=== PATIENT | female | born 2000 | race African-American/Black ===

== ENCOUNTER 2020-02-10 13:20 | Emergency (ER) | payer OTHER ==
[~2020-02-10] VITALS: Ht 167.6 cm; Wt 57.2 kg
[2020-02-10 13:21] VITALS: BP 136/77
[2020-02-10] MEDS ORDERED: ACETAMINOPHEN TAB 650MG DOSE (2X325MG) PO ONE (14:15)
== END 2020-02-10 15:18 | disposition left against medical advice (07) ==
LOC: M ED 13:20
DX: S09.90XA Unspecified injury of head, initial encounter (principal); Y04.8XXA Assault by other bodily force, initial encounter; Y07.01 Husband, perpetrator of maltreatment and neglect; Y92.018 Other place in single-family (private) house as the place of occurrence of the external cause; F17.210 Nicotine dependence, cigarettes, uncomplicated

== ENCOUNTER 2020-05-23 17:02 | Emergency (ER) | payer OTHER ==
[~2020-05-23] VITALS: Ht 167.6 cm; Wt 57.8 kg
[2020-05-23 17:02] VITALS: BP 103/59
[2020-05-23] MEDS ORDERED: IBUP-1022 PO (17:16)
[2020-05-23] MEDS ORDERED: CYCL-707 PO (17:37)
[2020-05-23] MEDS ORDERED: methylPREDNISolone 125MG 2ML VIAL IM ONE (17:45)
[2020-05-23] MEDS ORDERED: LIDOCAINE 5% (LIDODERM) PATCH TD ONE (17:45)
[2020-05-23] MEDS ORDERED: **NOTE PATIENT COMMENT** MISC XX SCH (21:00)
== END 2020-05-23 18:12 | disposition home or self-care (01) ==
LOC: M ED 17:02
DX: M54.5 Low back pain (principal); Y93.B3 Activity, free weights; Y92.9 Unspecified place or not applicable; Y99.9 Unspecified external cause status; F17.200 Nicotine dependence, unspecified, uncomplicated; Z79.899 Other long term (current) drug therapy
CPT/HCPCS: 96372; 99282; J2930

== ENCOUNTER 2022-01-06 21:55 | Inpatient (IN) | payer OTHER ==
[~2022-01-06] VITALS: Ht 170.2 cm; Wt 68.2 kg
[~2022-01-06 21:55] MED LIST: CYCL-707 PO; IBUP-1022 PO
[2022-01-06] MEDS ORDERED: OXYTOCIN INJ 10 UNITS/ML VIAL (J2590) IV PRN (22:20)
[2022-01-06] MEDS ORDERED: LACTATED RINGER'S 1000 ML IV STA (22:20)
[2022-01-06] MEDS ORDERED: LIDOCAINE 1% MDV 20ML VIAL INFIL PRN (22:20)
[2022-01-06] MEDS ORDERED: TRANEXAMIC ACID INJection 1,000 MG in NS 100 ML IV PRN (22:20)
[2022-01-06] MEDS ORDERED: LR 1,000 ML IV SCH (22:20)
[2022-01-06] MEDS ORDERED: METHYLERGONOVINE MALEATE 0.2 MG/ML VIAL (J2210) IM PRN (22:20)
[2022-01-06] MEDS ORDERED: OXYTOCIN DRIP 30 UNITS in IV 1 EA IV PRN ×6 (22:20)
[2022-01-06] MEDS ORDERED: OXYTOCIN INJ 10 UNITS/ML VIAL (J2590) IM PRN (22:20)
[2022-01-06] MEDS ORDERED: CARBOPROST TROMETHAMINE 250 MCG/ML AMP IM PRN (22:20)
[2022-01-06] MEDS ORDERED: PRENTAB9 PO (22:29)
[2022-01-06] MEDS ORDERED: HOME MED LIST COMPLETE! XX SCH (22:30)
[2022-01-06] MEDS ORDERED: FENTANYL 2MCG/ML ROPIVACAINE 0.2% IN 0.9% NACL 100ML IVBAG As Ordered ONE (22:41)
[2022-01-06 22:49] LABS: HEMATOCRIT 32.9 % (36.0-47.0); HEMOGLOBIN 11.3 g/dl (12.0-15.5); MEAN CORPUSCULAR HEMOGLOBIN 30.6 pg (27.0-33.0); MEAN CORPUSCULAR HGB CONC 34.3 g/dl (32.0-36.5); MEAN CORPUSCULAR VOLUME 89.2 fl (80.0-96.0); PLATELET COUNT, AUTOMATED 230 10^3/uL (150-450); RED BLOOD COUNT 3.69 10^6/uL (4.00-5.40); WHITE BLOOD COUNT 12.4 10^3/uL (4.0-10.0)
[2022-01-06] MEDS ORDERED: EPIDURAL/PCA KEYS XX PRN (22:55)
[2022-01-06] MEDS ORDERED: ePHEDrine SULFATE 25 MG/5 ML(5MG/ML) SYRINGE IVP PRN (22:55)
[2022-01-06] MEDS ORDERED: ONDANSETRON 4MG/2ML VIAL IV PRN (22:55)
[2022-01-06] MEDS ORDERED: NALOXONE INJ 0.4MG/1ML VIAL (J2310 PER 1MG) IV PRN (22:55)
[2022-01-06] MEDS ORDERED: diphenhydrAMINE 50MG/ML VIAL (J1200) IV PRN (22:55)
[2022-01-06] MEDS ORDERED: FENTANYL/ROPIVACAINE/NACL BAG 100 ML EPIDURAL SCH (22:55)
[2022-01-06] MEDS ORDERED: LR 500 ML IV PRN (22:55)
[2022-01-06 23:24] VITALS: BP 125/77
[2022-01-06 23:53] VITALS: BP 142/86
[2022-01-06 23:58] VITALS: BP 145/91
[2022-01-07] VITALS (21 sets, daily range): BP systolic 108–150; BP diastolic 57–87
[2022-01-07] MEDS ORDERED: ACETAMINOPHEN TAB 650MG DOSE (2X325MG) PO PRN (04:10)
[2022-01-07] MEDS ORDERED: METHYLERGONOVINE MALEATE 0.2 MG TAB PO PRN (04:10)
[2022-01-07] MEDS ORDERED: ONDANSETRON 4MG/2ML VIAL IV PRN (04:10)
[2022-01-07] MEDS ORDERED: IBUPROFEN 600MG TAB PO PRN (04:10)
[2022-01-07] MEDS ORDERED: LR 1,000 ML IV SCH (04:10)
[2022-01-07] MEDS ORDERED: ACETAMINOPHEN 500 MG TAB PO PRN (04:10)
[2022-01-07] MEDS ORDERED: IBUPROFEN 800 MG TAB PO PRN (04:10)
[2022-01-07] MEDS ORDERED: ANUSOL HC CREAM 30GM TOP PRN (04:10)
[2022-01-07] MEDS ORDERED: DIBUCAINE 1% OINTMENT 30GM TOP PRN (04:10)
[2022-01-07] MEDS ORDERED: RHOGAM 300 MCG (1500 IU) INJ (J2790) IM SCH (04:10)
[2022-01-07] MEDS ORDERED: OXYTOCIN DRIP 30 UNITS in IV 1 EA IV SCH (04:10)
[2022-01-07] MEDS: PRENATAL VITAMINS CHEWABLE TABLET PO SCH (09:13)
[2022-01-07] MEDS: DOCUSATE SODIUM 100MG CAPSULE PO SCH ×2 (09:13→21:44)
[2022-01-08 06:00] VITALS: BP 126/79
[2022-01-08] MEDS: DOCUSATE SODIUM 100MG CAPSULE PO SCH ×2 (08:16→20:27)
[2022-01-08] MEDS: PRENATAL VITAMINS CHEWABLE TABLET PO SCH (08:16)
[2022-01-08 18:09] VITALS: BP 134/74
[2022-01-09 06:11] VITALS: BP 126/83
[2022-01-09] MEDS ORDERED: IBUP-1022 PO (06:29)
[2022-01-09] MEDS ORDERED: COLA100C5 PO (06:29)
[2022-01-09] MEDS ORDERED: ACET1TAB55 PO (06:29)
[2022-01-09] MEDS: DOCUSATE SODIUM 100MG CAPSULE PO SCH (08:59)
[2022-01-09] MEDS: PRENATAL VITAMINS CHEWABLE TABLET PO SCH (08:59)
[2022-01-09] MEDS ORDERED: MEASLES,MUMPS,RUBELLA VACCINE INJ (MMR-II) (90707) SC ONE (09:00)
== END 2022-01-09 12:00 | disposition home or self-care (01) | DRG 807 ==
LOC: M LDO 21:55 → M LDI 22:09 → M OBS 01-07 06:15
PROVIDERS: ADMIT Obstetrics & Gynecology; ATTEND Obstetrics & Gynecology
PROC: 10E0XZZ Delivery of Products of Conception, External Approach (ICD-10-PCS; principal; 2022-01-07)
DX: O80 Encounter for full-term uncomplicated delivery (principal); Z37.0 Single live birth; Z3A.38 38 weeks gestation of pregnancy

== ENCOUNTER 2022-12-24 19:28 | Inpatient (IN) | payer OTHER ==
[~2022-12-24] VITALS: Ht 170.2 cm; Wt 74.0 kg
[~2022-12-24 19:28] MED LIST changes: +ACET1TAB55 PO; +COLA100C5 PO; +PRENTAB9 PO
[2022-12-24 19:32] VITALS: BP 125/81
[2022-12-24] MEDS ORDERED: OXYTOCIN 30UNITS IN 0.9% NaCl 500ML IV BAG As Ordered ONE (19:58)
[2022-12-24] MEDS ORDERED: DOCUSATE SODIUM 100MG CAPSULE PO PRN (20:10)
[2022-12-24] MEDS ORDERED: DIBUCAINE 1% OINTMENT 30GM TOP PRN (20:10)
[2022-12-24] MEDS ORDERED: OXYTOCIN DRIP 30 UNITS in IV 1 EA IV SCH (20:10)
[2022-12-24] MEDS ORDERED: METHYLERGONOVINE MALEATE 0.2MG/ML 1ML VIAL IM PRN (20:10)
[2022-12-24] MEDS ORDERED: PROMETHAZINE 25 MG TAB PO PRN (20:10)
[2022-12-24] MEDS ORDERED: METOCLOPRAMIDE INJ 10MG/2ML VIAL IV PRN (20:10)
[2022-12-24 20:17] VITALS: BP 126/85
[2022-12-24] MEDS: IBUPROFEN 800 MG TAB PO SCH (20:24)
[2022-12-24] MEDS: ACETAMINOPHEN 500 MG TAB PO SCH (20:24)
[2022-12-24 20:32] VITALS: BP 121/86
[2022-12-24 20:44] LABS: HEMATOCRIT 35.3 % (36.0-47.0); MEAN CORPUSCULAR HEMOGLOBIN 30.2 pg (27.0-33.0); MEAN CORPUSCULAR VOLUME 88.7 fl (80.0-96.0); PLATELET COUNT, AUTOMATED 263 10^3/uL (150-450); RED BLOOD COUNT 3.98 10^6/uL (4.00-5.40); WHITE BLOOD COUNT 9.8 10^3/uL (4.0-10.0)
[2022-12-24 20:47] VITALS: BP 120/76
[2022-12-24 21:42] VITALS: BP 121/76
[2022-12-25] MEDS: ACETAMINOPHEN 500 MG TAB PO SCH ×4 (02:43→20:20)
[2022-12-25] MEDS: IBUPROFEN 800 MG TAB PO SCH ×3 (04:40→20:20)
[2022-12-25 05:47] LABS: HEMATOCRIT 30.8 % (36.0-47.0); HEMOGLOBIN 10.4 g/dl (12.0-15.5); MEAN CORPUSCULAR HEMOGLOBIN 30.4 pg (27.0-33.0); MEAN CORPUSCULAR HGB CONC 33.8 g/dl (32.0-36.5); MEAN CORPUSCULAR VOLUME 90.1 fl (80.0-96.0); PLATELET COUNT, AUTOMATED 237 10^3/uL (150-450); RED BLOOD COUNT 3.42 10^6/uL (4.00-5.40); WHITE BLOOD COUNT 13.1 10^3/uL (4.0-10.0)
[2022-12-25 06:00] VITALS: BP 101/56
[2022-12-25] MEDS: PRENATAL VITAMINS CHEWABLE TABLET PO SCH (08:10)
[2022-12-25] MEDS ORDERED: HOME MED LIST COMPLETE! XX SCH (13:15)
[2022-12-25 18:00] VITALS: BP 108/65
[2022-12-26] MEDS: ACETAMINOPHEN 500 MG TAB PO SCH ×3 (02:11→14:51)
[2022-12-26] MEDS: IBUPROFEN 800 MG TAB PO SCH ×2 (04:25→12:31)
[2022-12-26 06:00] VITALS: BP 105/58
[2022-12-26] MEDS: PRENATAL VITAMINS CHEWABLE TABLET PO SCH (09:30)
== END 2022-12-26 18:30 | disposition home or self-care (01) | DRG 769 ==
LOC: M LDI 19:28 → M OBS 21:30
PROVIDERS: ADMIT Obstetrics & Gynecology; ATTEND Advanced Practice Midwife
PROC: 10D17ZZ Extraction of Products of Conception, Retained, Via Natural or Artificial Opening (ICD-10-PCS; principal; 2022-12-24)
DX: O73.0 Retained placenta without hemorrhage (principal); O71.7 Obstetric hematoma of pelvis